=== PATIENT | female | born 1970 | race Two or more races ===

== ENCOUNTER 2025-05-07 07:00 | Day surgery (SDC) | payer OTHER ==
[2025-05-04 15:16] VITALS: BP 130/81
[~2025-05-07] VITALS: Ht 167.6 cm; Wt 63.5 kg
[~2025-05-07 07:00] MED LIST: CRESTOR40 MG PO; DUTASTERIDE-TA1 EACH PO; MULTI-VITAMIN1 EACH PO; PROTONIX20 MG PO; TAMOXIFEN CITRA10 MG PO
[2025-05-07] MEDS ORDERED: CIPROFLOXACIN IN 5 % DEXTROSE 400 MG/200 ML PIGGYBAG IV ONE (09:34)
== END 2025-05-07 14:45 | disposition home or self-care (01) ==
LOC: CIR.AMB 07:00
PROVIDERS: ATTEND Surgery
DX: D48.61 Neoplasm of uncertain behavior of right breast (principal); R92.1 Mammographic calcification found on diagnostic imaging of breast; N60.91 Unspecified benign mammary dysplasia of right breast